=== PATIENT | male | born 1985 | race Two or more races ===

== ENCOUNTER 2024-09-08 15:54 | Emergency (ER) | payer OTHER ==
[~2024-09-08] VITALS: Ht 167.6 cm; Wt 74.3 kg
[2024-09-08 16:14] VITALS: BP 149/88; PULSE 86; RESP 16; O2SAT 99
--- NOTE | 2024-09-08 16:30 | ED.PDOC ---
HPI Comments 39-year-old male with no reported PMHx presents with a chief complaint of laceration x onset 1 hour ago. Patient was holding a knife in his right hand and states that he was applying pressure when the knife came and sliced his left middle finger and ring finger on his left hand. Patient denies any numbness or tingling to the digit. Patient mentions that he began to clean the laceration with peroxide after it occurred. Patient mentions that there is no pain unless he moves his finger or applies pressure to his left hand. Patients last tetanus shot was 3 years ago. No other symptoms or modifying factors present at this time. No active bleed. Chief Complaint: Laceration Time Seen by MD: 16:14 Reviewed Notes: Nurses Notes, Medications, Allergies Allergies: Coded Allergies: Avocado (Verified Allergy, Unknown, 09/08/24) Uncoded Allergies: CATS (Allergy, Unknown, 09/08/24) NUTS (Allergy, Unknown, 09/08/24) Information Source: Patient Mode of Arrival: Ambulatory Severity: Mild, Moderate Severity of Laceration: Controlled Bleeding Complexity: Simple Timing: Minutes Prehospital treatment: None Laceration Location: Hand, Digit #3, Digit #4 Mechanism: Knife Last Tetanus: UTD Laceration Length (cm): 2 Skin Type: Linear Depth of Injury: Skin, Mucosa Tender: Moderate Past Medical History PAST MEDICAL HISTORY: Denies Surgical History: Denies all surgeries Family History Family History: Reviewed,noncontributory to illness Social History Smoker: Non-Smoker Alcohol: Denies ETOH Use Drugs: Denies Drug Use Lives In: Home Constitutional: denies: chills, diaphoresis, fatigue, fever, malaise, sweats, weakness, others EENTM: denies: blurred vision, double vision, ear bleeding, ear discharge, ear drainage, ear pain, ear ringing, eye pain, eye redness, hearing loss, mouth pain, mouth swelling, nasal discharge, nose bleeding, nose congestion, nose p ain, photophobia, tearing, throat pain, throat swelling, voice changes, others Respiratory: denies: cough, hemoptysis, orthopnea, SOB at rest, shortness of breath, SOB with excertion, stridor, wheezing, others Cardiovascular: denies: chest pain, dizzy spells, diaphoresis, Dyspnea on exertion, edema, irregular heart beat, left arm pain, lightheadedness, palpitations, PND, syncope, others Gastrointestinal: denies: abdomen distended, abdominal pain, blood streaked bowels, constipated, diarrhea, dysphagia, difficulty swallowing, hematemesis, melena, nausea, poor appetite, poor fluid intake, rectal bleeding, rectal pain, vomiting, others Genitourinary: denies: burning, dysuria, flank pain, frequency, hematuria, incontinence, penile discharge, penile sore, pain, testicle pain, testicle swelling, urgency, others Neurological: denies: dizziness, fainting, headache, left sided numbness, left sided weakness, numbness, paresthesia, pre-existing deficit, right sided numbness, right sided weakness, seizure, speech problems, tingling, tremors, weakness, others Musculoskeletal: denies: back pain, gout, joint pain, joint swelling, muscle pain, muscle stiffness, neck pain, others Integumetry: reports: laceration (Left 3rd and 4th digits); denies: bruises, change in color, change in hair/nails, dryness, lesions, lumps, rash, wounds, others Allergic/Immunocompromised: denies: Difficulty Healing, Frequent Infections, Hives, Itching, others Hematologic/Lymphatic: denies: anemia, blood clots, easy bleeding, easy bruising, swollen glands, others Endocrine: denies: excessive hunger, excessive sweating, excessive thirst, excessive urination, flushing, intolerance to cold, intolerance to heat, unexplained weight gain, unexplained weight loss, others Psychiatric: denies: anxiety, bipolar disorder, depression, hopeless, panic disorder, schizophrenia, sleepless, suicidal, others All Other Systems: Reviewed and Negative Physical Exam General Appearance: Mild Distress (Very mild distress due to laceration on left fingers.), Normal HEENT: Normal ENT Inspection, Pharynx Normal, TMs Normal Neck: Full Range of Motion, Non-Tender, Normal, Normal Inspection Respiratory: Chest Non-Tender, Lungs Clear, No Accessory Muscle Use, No Respiratory Distress, Normal Breath Sounds Cardiovascular: No Edema, No JVD, No Murmur, No Gallop, Normal Peripheral Pulses, Regular Rate/Rhythm Breast Exam: Deferred Gastrointestinal: No Organomegaly, Non Tender, No Pulsatile Mass, Normal Bowel Sounds, Soft Genitalia: Deferred Pelvic: Deferred Rectal: Deferred Extremities: No calf tenderness, Normal capillary refill, Normal inspection, Normal range of motion, Non-tender, No pedal edema Musculoskeletal : Apperance: Normal Neurologic: Alert, No Motor Deficits, Normal Affect, Normal Mood, No Sensory Deficits Cerebellar Function: Normal Reflexes: Normal Skin: Dry, Lacerations (Patient displays a 2 cm laceration to the D IP of the left dorsal middle finger. Additionally, patient displays a 5 mm lack to the D IP of the 4th dorsal finger. No active bleed. No signs of foreign body. No tendon or muscle involvement. Patient displays full extension and flexion.), Normal Color, Warm Lymphatic: No Adenopathy Was a procedure done? Was a procedure done?: Yes Sedation Sedation?: No Other Procedure Notes 4 cc of 1% lidocaine was utilized for digit block of left middle finger. Sterile field was placed. Copious irrigation performed. Sevsn 5-0 Ethilon sutures were utilized in a simple interrupted fashion to close the laceration. Minimal blood loss. Patient tolerated procedure well. Clean dressing applied. Dermabond was applied to the DIP of the 4th digit to close a relatively superficial laceration that was approximately 5 mm. Clean dressing applied with splints. Differential diagnosis Generic Laceration: Other (Finger laceration) X-Ray, Labs, Meds, VS Vital Signs Date Time Temp Pulse Resp B/P (MAP) Pulse Ox O2 Delivery O2 Flow Rate FiO2 09/08/24 16:14 98.0 86 16 149/88 (108) 99 X-Ray, Labs, Meds, VS Comment Sutures were placed without event. Patient tolerated procedure well. Advised patient to utilize antibiotics as directed and pain medication as needed. Patient should return to ED or primary care provider in 8-10 days for re- evaluation and probable suture removal. Time of 1ST Reevaluation: 17:01 Reevaluation 1ST: Improved Consultation: PCP Patient Education/Counseling: Diagnosis, Treatment, Prognosis Family Education/Counseling: Diagnosis, Treatment, Prognosis Departure 1 Departure Time of Disposition: 17:02 Impression: Primary Impression: Finger laceration Disposition: HOME / SELF CARE / HOMELESS Condition: Stable Additional Instructions: Advised patient utilize antibiotics as directed until completion as well as pain medication as needed. Patient can utilize the finger splints as long as it aid in the healing process. Patient should return to ED or primary care provider in approximately 8-10 days for re-evaluation and probable suture removal. e-Prescriptions Ibuprofen (Ibuprofen) 600 Mg Tab 1 TAB PO Q6HP PRN, #20 TAB Prov: ANTONETTE SOLORIO PAC 09/08/24 Cephalexin (KEFLEX CAPSULE) 250 Mg Cp 1 CAP PO QID PRN for 7 Days, #28 CAP Prov: ANTONETTE SOLORIO PAC 09/08/24 Discharged With: Self, Friend Critical Care Note Critical Care Time?: No Stability Stability form required: No I personally scribed for ANTONETTE SOLORIO PAC ([email or web address]) on 09/08/24 at 16:30. Electronically submitted by Renato Velez ([email or web address]). ANTONETTE SOLORIO PAC Sep 08, 2024 16:30
[2024-09-08] MEDS ORDERED: IBUP-1454 PO (17:03)
[2024-09-08] MEDS ORDERED: CEPH250C PO (17:03)
== END 2024-09-08 18:52 | disposition home or self-care (01) ==
LOC: ER 15:54
DX: S61.213A Laceration without foreign body of left middle finger without damage to nail, initial encounter (principal); Z91.018 Allergy to other foods; Z91.048 Other nonmedicinal substance allergy status; W26.0XXA Contact with knife, initial encounter; Y93.89 Activity, other specified; Y92.89 Other specified places as the place of occurrence of the external cause; Y99.8 Other external cause status
CPT/HCPCS: 12001; 99283; J2003

== ENCOUNTER 2024-09-16 15:35 | Emergency (ER) | payer OTHER ==
[~2024-09-16] VITALS: Ht 167.6 cm; Wt 72.4 kg
[~2024-09-16 15:35] MED LIST: CEPH250C PO; IBUP-1454 PO
[2024-09-16 15:40] VITALS: BP 113/67; PULSE 111; RESP 20; TEMP 97.5; O2SAT 99
[2024-09-16] MEDS ORDERED: SODIUM CHLORIDE 0.9% 1,000 ML IV ONE (16:15)
[2024-09-16] MEDS ORDERED: ONDANSETRON HCL 4 MG/2 ML VIAL IV ONE (16:15)
[2024-09-16] MEDS ORDERED: MORPHINE SULFATE 4 MG/ML SYR/VIAL IV ONE (16:15)
== END 2024-09-16 17:18 | disposition left against medical advice (07) ==
LOC: ER 15:35
DX: R51.9 Headache, unspecified (principal); R11.2 Nausea with vomiting, unspecified; Z53.21 Procedure and treatment not carried out due to patient leaving prior to being seen by health care provider